=== PATIENT | female | born 1975 | race Caucasian/White ===

== ENCOUNTER 2021-11-05 10:49 | Outpatient (REF) | payer BC, SELFPAY ==
[2021-11-05 12:04] LABS: COVID-19 Test Negative (Negative); IDNOW Serial# 55D5AD1C
== END 2021-11-05 10:50 | disposition home or self-care (01) ==
LOC: HO.LAB 10:49
PROVIDERS: Visit Provider Internal Medicine
DX: Z20.822 Contact with and (suspected) exposure to COVID-19 (principal)
CPT/HCPCS: 36415; 87635; C9803

== ENCOUNTER 2025-10-20 11:17 | Outpatient (AMB) | payer BC, SELFPAY ==
--- NOTE | 2025-10-20 11:24 | A.PHYSOV ---
Intake Visit Reasons: Follow up after injection 08/22/25 Intake Note: Patient is a 50 year old female here to follow up on Left C6 and C7 TFESI done on 08/22/2025. 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 She reports receiving left C6, C7 TFESI on 08/22/2025. She reports 20% reduction of her periscapular pain but she still has discomfort over the left upper trapezius and cervical spine.. She currently describes her pain as a tightness sensation, which remains localized and does not radiate into her arm at rest. The patient rates her pain as a constant 4/10, stating it never goes below this level. She has had trigger point injections in the past. The patient reports taking a 60 mg prescription medication, initiated by her primary care physician, and is discussing weaning off of it as she is unsure of its benefit. She previously took gabapentin 100 mg during the day but is not currently taking it. She recently had a new MRI and saw Dr. Mcdermott for consultation, who concluded that she is not a surgical candidate at this time. Pain Description - Location: The pain is mostly localized to the neck, specifically the SCM area, and upper scapular region. - Quality: The patient describes the pain as a feeling of tightness and a pulling sensation. - Severity: Pain is rated as a constant 4 out of 10 and does not go below that level. - Exacerbating Factors: Pain is felt in the arm when she abducts her arms, or spreads her wings. - Radiation: The pain does not radiate down her arm during normal rest. - Relieving Factors: A previous injection provided a small amount of relief. Procedure: Left C6, C7 TFESI 08/22/2025 100% reduction of her parascapular pain. Left upper trapezius trigger point injection 10/20/2025 Results - Imaging: A recent MRI was reviewed by a sap portal consultant, who determined the patient is not a surgical candidate. [facility] Surgical History History of neck surgery Social History Alcohol intake: current Alcohol intake frequency: does not drink Patient Tobacco Use Status: Never used Tobacco Review of Systems Narrative Review of Systems - Musculoskeletal: Reports constant tightness and pulling pain in the neck and scapular regions, rated 4/10. - Neurological: Denies pain radiation into the arm at rest. Physical Exam Exam Exam: Physical Exam Cervical Spine: Examination of the cervical spine, there is no visible swelling or deformity. She is tender to the left upper trapezius. She is otherwise nontender. Full range of motion of her cervical spine. Special Tests: Axial Compression test: Negative Spurlings test: Negative Lhermitte's sign is Negative Upper Extremities: Full range of motion bilateral upper extremities. Equal bench examiner strength bilaterally. Neuro: Sensation: Intact to upper extremities bilateral to light touch Strength C5 (Elbow Flexion): 5/5 on the left and 5/5 on the right. C6 (Elbow Ext): 5/5 on the left and 5/5 on the right. C7 (Elbow Ext): 5/5 on the left and 5/5 on the right. C8 (Finger Flex): 5/5 on the left and 5/5 on the right. T1 (Finger Abd/Add): 5/5 on the left and 5/5 on the right. DTR: C5 (Biceps): Left 2 Right 2 C6 (Brachioradialis): Left 2 Right 2 C7 (Triceps): Left 2 Right 2 Gregorio sign: Negative No pathologic clonus. No involuntary movement. Office Procedures AMB Trigger Point Inject - Phy Therapeutic Injection Details: Trigger point injection left upper trapezius x2 : Patient was educated about the risks, complications and benefits of trigger point injection. Risks and complications include infection, nerve damage, bleeding, collapsed lung. After discussing these risks complications and benefits the patient is eager to proceed. The patient's left upper trapezius x2 muscle spasm was marked cleansed with an alcohol prep. 1 mL of 1% lidocaine was injected into the trigger point with needling. Patient tolerated the procedure well without immediate complication. 29271-[id number] Point Injection 1 or 2 sites All charges added?: Procedure code (CPT) selection complete Office Meds lidocaine (PF) 20 mg/mL (2 %) injection solution Performing Provider: SLADE Paez Performing Location: [facility] [place] [facility] Administered by: SLADE Paez on 12/18/25 18:01 Dose Route Admin Location Dispensed Lot Number Expiration Date [employer] 40 mg IM 5 mL [id number] [facility] Total Dispensed Waste 5 mL 60 % Assessment & Plan Assessment & Plan (1) Cervical radiculopathy: Code(s): M54.12 - Radiculopathy, cervical region Category: Medical (2) Myalgia: Code(s): M79.10 - Myalgia, unspecified site Category: Medical Plan Pain Management - Analgesia: The patient's baseline pain is a constant 4/10. - She is taking a 60 mg medication but is unsure of its benefit and wishes to wean off it. - She has previously taken gabapentin 100 mg and will be prescribed it for as-needed use. - Activities of Daily Living: The patient reports she is able to do things despite the constant pain. - Aberrant Drug Related Behaviors: None noted; the patient is actively seeking to reduce her medication intake. Plan Patient was informed and verbally consented to the use of an ambient scribe for clinic note documentation during this visit. 1. Myofascial Pain The patient's persistent localized tightness and pulling sensation in her neck and shoulder, with a baseline pain level of 4/10, is suggestive of a significant myofascial pain component, which may be a separate entity from her prior nerve-related pain. A recent MRI review confirmed she is not a surgical candidate. The plan includes performing left-sided trigger point injections in the office today to address the taut bands in the upper trapezius and SCM regions. A discussion was held regarding medication management, including a tapering plan for her current 60 mg daily medication by reducing the dose to 30 mg daily for two weeks, then 30 mg every other day before stopping. A new prescription for gabapentin 100 mg will be sent for as-needed use for pain flares. The patient is advised to follow up in approximately 4 months or sooner if her symptoms worsen. Discussion Notes I discussed with the patient that her current symptoms of pulling and tightness are likely due to myofascial pain, which may not be directly related to the nerve pain that has improved somewhat from her prior injection. We proceeded with trigger point injections today to target the affected muscles. I educated her on the risks of the procedure, including temporary post-injection soreness, bleeding, and the small but serious risk of pneumothorax when injecting deep in the neck, and I explained that my technique of angling the needle sideways is designed to mitigate that risk. We also reviewed her medications. I provided a tapering schedule to help her wean off her 60 mg medication, as she is uncertain of its benefit. I will also prescribe gabapentin 100 mg for her to use as needed for pain, without refills, to have on hand for flares. I advised a follow-up in about 4 months for repeat injections or that she could schedule an appointment as needed. Patient Instructions - It is normal to feel sore in the areas of the injection for a couple of days, and then your pain should start to settle down. - You may continue with your normal activities, but avoid any strenuous workouts focusing on the injected shoulder and neck muscles for today. - To stop your 60 mg daily medication, you will first reduce your dose to 30 mg once a day for a couple of weeks, then take 30 mg every other day before stopping completely. - A prescription for gabapentin 100 mg will be sent to your pharmacy. - You should only take this medication as needed when your pain is worse. - You should schedule a follow-up appointment in about 4 months, or you can call to schedule an as-needed visit if your pain flares up before then. Orders: Orders AMB Trigger Point Injection - Physiatry Today M79.10 - Myalgia, unspecified site Medications: New gabapentin 100 mg PO TID 90 caps 0RF 30 days M54.12 - Radiculopathy, cervical region, M79.10 - Myalgia, unspecified site Coding Level of Care Code Tele Est Pt Level 4 (32312) Diagnoses Cervical radiculopathy M54.12 Myalgia M79.10 CPT Codes Therapeutic Injection - Ther Injection 1: [id number]-[id number] Point Injection 1 or 2 sites ([id number]) Time Spent (min) 30 Comment Thirty minutes reviewing the medical record and imaging, seeing the patient and documentin
--- OUTSIDE RECORDS SUMMARY | 2025-10-20 14:48 | XMS_ITS | Patient Health Record ---
Author Organization [facility] [place] Address [address] [place] [address] Care Team Providers Care Account Analyst Name Role Phone Magalie Hill Primary Care Provider Unayaritza ilYung Riley Unavailable [phone] Allergies Allergen (clinical drug ingredient) Drug/Non Drug Allergy documented on EMR Reaction Allergy Type Onset Date Status Substance with penicillin structure and antibacterial mechanism of action (substance) Penicillins rash Drug Allergy Active Reason For Referral No Information Medications Medication SIG (Take, Route, Frequency, Duration) Notes Start Date End Date Status Probiotic Active Gabapentin 300 MG 1 capsule Orally Onc e a day Active Albuterol Sulfate HFA 108 (90 Base) MCG/ACT 1 puff as needed Inhalation every 4 hrs PRN Active Diclofenac Sodium 75 MG 1 tablet as need ed Orally Twice a day PRN Not-Taking metroNIDAZOLE 0.75 % 1 application Externally Twice a day Unknown Ibuprofen Active Cyclobenzaprine HCl 5 MG 1 tablet at bed time as needed Orally Once a day Unknown Vitamin C Active Glucosamine Active traMADol HCl 50 MG 1 tablet as needed Orally Once a day Unknown Vitamin D3 Unknown Triamcinolone Acetonide 0.1 % 1 application Externally Two times a Week Unknown Social History Tobacco Use: Social History Observation Description Date Details (start date - stop date) Former Smoker NA - NA Tobacco Use/Smoking Question Answer Notes Are you a: former smoker Additional Findings: Tobacco Non-User Current no n-smoker Alcohol Screen Question Answer Notes Did you have a drink containing alcohol in the p ast year? No Points 0 Interpretation Negative Tobacco use other than smoking: Question Answer Notes Are you an other tobacco user? No Problems Problem Type SNOMED Code ICD Code Onset Dates Problem Status W/U Status Risk Notes Problem Acquired hammer toe of left foot (7528975965599786) Other hammer toe(s) (acquired), left foot (M20.42) Active confirmed Problem Localized, primary osteoarthritis of the ankle and/or foot (854177449) Arthritis of joint of lesser toe, left (M19.072) Active confirmed Plan Of Treatment Pending Test Test Name Order Date X ray : Foot, left 3V 07/29/2024 Insurance Providers Payer Name Payer Address Payer Phone Subscriber Number Group Number Insured Name Patient Relationship to Insured Coverage Start Date Coverage End Date [employer] [address] [place] [address] [id number] Sofia Miller Self - patient is the insured Medical (General) History Medical History History ICD Code Anxiety depressive disorder asthma Reflux ( GERD) Rosacea Cervical radiculopathy Chicken pox Neck pain Surgical History Surgery Date(Month/Year) oophorectomy 2013 2009 right elbow 2019
== END 2025-10-20 12:44 | disposition home or self-care (01) ==
LOC: HO.HPHYS 11:17
PROVIDERS: Visit Provider Physician Assistant
DX: M54.12 Radiculopathy, cervical region (principal); M79.18 Myalgia, other site
CPT/HCPCS: 20552; 99204

== ENCOUNTER → 2025-10-20 11:17 | Outpatient (BNVA) | payer BC, SELFPAY | PROVIDERS: Visit Provider Physician Assistant | DX: M54.12 Radiculopathy, cervical region (principal); M79.10 Myalgia, unspecified site | CPT/HCPCS: 20552; J2003 ==